=== PATIENT | male | born 1960 | race Caucasian/White ===

== ENCOUNTER 2017-03-26 11:50 | Inpatient (IN) | payer OTHER ==
--- NOTE | 2017-03-26 13:19 | PDOC ---
History of Present Illness - General Chief Complaint: Respiratory Stated Complaint: SOB (PCP SENT) Time Seen by Provider: 03/26/17 12:35 - History of Present Illness Initial Comments: 03/26/17 13:12 "56 year old male, with significant past medical history of CAD s/p coronary artery bypass grafting 06/23/07 and graft re-implantation 12/26/16, HTN, HLD, childhood lymphoma (s/p radiation and pectus excavatum deformity), AVR, CVA, carotid stenosis, who presents to the ER today complaining of 3 weeks of SOB on exertion. When the episodes occur, his chest feels tight, his hearing becomes muffled and he feels as though he is going to pass out. He denies any syncopal episodes. He states that the symptoms occur with minimal exertion, such as walking. These symptoms are alleviated after sitting down and catching his breath. At this moment, the patient is not experiencing any symptoms. The patient was sent into the ED today by Dr. Pleitez for labwork, imaging, and admission. Denies palpitations. Denies cough. Denies fever, chills, nausea, vomiting. Allergies: NKDA Ship Worker: Dr. Pleitez PMD: Dr. Gilbert " Past History - Past Medical History Allergies/Adverse Reactions: Allergies Allergy/AdvReac Type Severity Reaction Status Date / Time shrimp Allergy Verified 03/26/17 11:56 SHRIMPS Allergy Unknown Uncoded 03/26/17 11:56 Home Medications: Ambulatory Orders Aspirin [Aspirin EC] 81 mg PO DAILY 04/29/16 Nebivolol [Bystolic -] 5 mg PO DAILY 04/29/16 Pravastatin Sodium [Pravachol -] 40 mg PO HS 04/29/16 Ezetimibe 10 mg PO ONCE 03/26/17 Cardiac Disorders: Yes (CAD) COPD: No Hypercholesterolemia: Yes - Surgical History Cardiac Surgery: Yes (TRIPPLE VESSEL CABG, AORTIC VALVE REPLACEMENT) - Suicide/Smoking/Psychosocial Hx Smoking History: Never smoked Have you smoked in the past 12 months: No Hx Alcohol Use: No Drug/Substance Use Hx: No Substance Use Type: None Review of Systems - Review of Systems Comments:: 03/26/17 13:14 "GENERAL/CONSTITUTIONAL: No fever or chills. No weakness. HEAD, EYES, EARS, NOSE AND THROAT: No change in vision. No ear pain or discharge. No sore throat. CARDIOVASCULAR: +SOB on exertion. No chest pain. RESPIRATORY: No cough, wheezing, or hemoptysis. GASTROINTESTINAL: No nausea, vomiting, diarrhea or constipation. GENITOURINARY: No dysuria, frequency, or change in urination. MUSCULOSKELETAL: No joint or muscle swelling or pain. No neck or back pain. SKIN: No rash NEUROLOGIC: No headache, vertigo, loss of consciousness, or change in strength/ sensation. ENDOCRINE: No increased thirst. No abnormal weight change. HEMATOLOGIC/LYMPHATIC: No anemia, easy bleeding, or history of blood clots. ALLERGIC/IMMUNOLOGIC: No hives or skin allergy. " *Physical Exam - Vital Signs Last Vital Signs Temp Pulse Resp BP Pulse Ox 97.9 F 73 20 124/70 100 03/26/17 11:53 03/26/17 12:39 03/26/17 11:53 03/26/17 11:53 03/26/17 12:39 - Physical Exam Comments: 03/26/17 13:15 "GENERAL: Awake, alert, and fully oriented, in no acute distress HEAD: No signs of trauma EYES: PERRLA, EOMI, sclera anicteric, conjunctiva clear ENT: Auricles normal inspection, hearing grossly normal, nares patent, oropharynx clear without exudates. Moist mucosa NECK: Nontender, no stepoffs, Normal ROM, supple, no lymphadenopathy, JVD, or masses LUNGS: Breath sounds equal, clear to auscultation bilaterally. No wheezes, and no crackles HEART: Regular rate and rhythm, normal S1 and S2, systolic ejection murmur ABDOMEN: Soft, nontender, normoactive bowel sounds. No guarding, no rebound. No masses EXTREMITIES: Normal range of motion, no edema. No clubbing or cyanosis. No cords , erythema, or tenderness NEUROLOGICAL: Cranial nerves II through XII intact. 5/5 strength and sensation in all extremities, Normal speech, normal gait SKIN: Warm, Dry, normal turgor, no rashes or lesions noted. " Heart Score/ECG Review - ECG Impressions Comment:: 03/26/17 13:15 NSR, no BARRIE/STDs, LBBB, inferior TWIs, axis wnl ED Treatment Course - LABORATORY CBC & Chemistry Diagram: 03/26/17 12:45 03/26/17 12:45 - RADIOLOGY Radiology Studies Ordered: Category Date Time Status CHEST CTA [CT] Stat CT Scan 03/26/17 12:53 Ordered CHEST X-RAY PORTABLE* [RAD] Stat Radiology 03/26/17 12:54 Ordered Medical Decision Making - Medical Decision Making 03/26/17 13:16 56 M with worsening BILL. Will evaluate for ACS and CHF, though pt clinically with no signs of either. Will obtain CTA of chest to evaluate vessels given recent valve replacement (december 26, 2016), consider echo to r/o paravalvular leak. - Labs - CXR - CTA chest - Admit tele 03/26/17 22:43 CT negative for PE. Will admit for further work up, including echo to eval aortic valve. Case discussed in detail with admitting physician including history, physical exam and ancillary studies. Admitting physician has assumed care for the patient and will follow all pending diagnostics and complete the evaluation and treatment. *DC/Admit/Observation/Transfer Diagnosis at time of Disposition: SOB (shortness of breath) - Discharge Dispostion Admit: Yes - Attestations Physician Attestion: 03/26/17 14:30 I, Dr. Abel Hart MD, attest that this document has been prepared under my direction and personally reviewed by me in its entirety. I further attest, that it accurately reflects all work, treatment, procedures and medical decision -making performed by me.
--- NOTE | 2017-03-26 13:25 | HP ---
Admitting History and Physical - Primary Care Physician PCP: Braden Nascimento - Admission Chief Complaint: sob on exertion History of Present Illness: 56 year old male, with significant past medical history of CAD s/p coronary artery bypass grafting 06/23/07 and graft re-implantation 12/26/16, HTN, HLD, childhood lymphoma (s/p radiation and pectus excavatum deformity), mechanical AVR at [place] on December 26 2016, CVA post-op, carotid stenosis, who presents to the ER today complaining of 3 weeks of SOB on exertion. When the episodes occur, his chest feels tight, his hearing becomes muffled and he feels as though he is going to pass out. He denies any syncopal episodes. He states that the symptoms occur with minimal exertion, such as walking. These symptoms are alleviated after sitting down and catching his breath. At this moment, the patient is not experiencing any symptoms. The patient was sent into the ED today by Dr. Pleitez and Dr. Nascimento for labwork, imaging, and admission. - Smoking History Smoking history: Never smoked Have you smoked in the past 12 months: No - Alcohol/Substance Use Hx Alcohol Use: No Home Medications - Allergies Allergies/Adverse Reactions: Allergies Allergy/AdvReac Type Severity Reaction Status Date / Time shrimp Allergy Verified 03/26/17 11:56 SHRIMPS Allergy Unknown Uncoded 03/26/17 11:56 - Home Medications Home Medications: Ambulatory Orders Aspirin [Aspirin EC] 81 mg PO DAILY 04/29/16 Nebivolol [Bystolic -] 5 mg PO DAILY 04/29/16 Pravastatin Sodium [Pravachol -] 40 mg PO HS 04/29/16 Ezetimibe 10 mg PO ONCE 03/26/17 Family Disease History - Family Disease History Family History: Unremarkable Review of Systems - Review of Systems Constitutional: denies: Chills, Fever Eyes: denies: Blind Spots HENT: denies: Difficult Swallowing Neck: reports: Decreased ROM Cardiovascular: reports: Shortness of Breath. denies: Chest Pain, Palpitations Respiratory: reports: Exercise Intolerance, SOB on Exertion. denies: Hemoptysis , Orthopnea Gastrointestinal: denies: Abdominal Pain Genitourinary: denies: Burning Breasts: reports: No Symptoms Reported Musculoskeletal: reports: No Symptoms Integumentary: reports: No Symptoms Neurological: reports: No Symptoms Physical Examination Vital Signs: Vital Signs Temperature 97.9 F 03/26/17 11:53 Pulse Rate 73 03/26/17 12:39 Respiratory Rate 20 03/26/17 11:53 Blood Pressure 124/70 03/26/17 11:53 O2 Sat by Pulse Oximetry (%) 100 03/26/17 12:39 Constitutional: Yes: Calm Eyes: Yes: EOM Intact HENT: Yes: Normocephalic Neck: Yes: Trachea Midline Cardiovascular: Yes: Regular Rate and Rhythm, S1, S2 Respiratory: Yes: Diminished (bibasilar right greater than left) Gastrointestinal: Yes: Normal Bowel Sounds ...Rectal Exam: Yes: Deferred Edema: No Peripheral Pulses WNL: Yes Labs: All labs pending Imaging - Results Chest X-ray: Pending Cat Scan: Pending Problem List - Problems (1) CAD (coronary artery disease) of artery bypass graft Code(s): I25.810 - ATHEROSCLEROSIS OF CABG W/O ANGINA PECTORIS (2) H/O aortic valve replacement Code(s): Z95.2 - PRESENCE OF PROSTHETIC HEART VALVE (3) CVA (cerebral vascular accident) Code(s): I63.9 - CEREBRAL INFARCTION, UNSPECIFIED (4) Dyspnea due to congestive heart failure Code(s): I50.9 - HEART FAILURE, UNSPECIFIED (5) Diastolic CHF Code(s): I50.30 - UNSPECIFIED DIASTOLIC (CONGESTIVE) HEART FAILURE (6) Lymphoma Code(s): C85.90 - NON-HODGKIN LYMPHOMA, UNSPECIFIED, UNSPECIFIED SITE Assessment/Plan BILL WITH DESATURATION SPO2 DENIES ORTHOPNEA PLEURAL EFFUSION LVDD EXTENSIVE CARDIAC HX LISTED CABG/AVR METTALIC NOTED MARIA ISABEL 1 WHEN PERFORMING CARDIO REHAB CHRONIC ANTICOAGULATION CTA R/O ILD/PE/CHF CARDIO EVAL REPEAT ECHO CHECK LABS/CXR/EKG PENDING ADMIT TO TELEMETRY Charmaine NASCIMENTO MD
[2017-03-26 13:55] LABS: MCH 21.4 pg (25.7-33.7); MCHC 31.1 g/dl (32.0-35.9); MEAN CELL VOLUME 68.8 fl (80-96); MEAN PLT VOLUME 9.4 fl (7.5-11.1); PLATELET COUNT 403 K/MM3 (134-434); WHITE BLOOD COUNT 8.6 K/mm3 (4.0-10.0)
[2017-03-26 14:04] LABS: INR 2.91 (0.82-1.09); PROTHROMBIN TIME (PATIENT) 32.9 SEC (9.98-11.88)
[2017-03-26 14:24] LABS: ALBUMIN 3.8 g/dl (3.4-5.0); ANION GAP 7 (8-16); BILIRUBIN,TOTAL 1.1 mg/dL (0.2-1.0); CALCIUM 9.8 mg/dL (8.5-10.1); CO2 30 mmol/L (21-32); GLUCOSE,RANDOM 95 mg/dL (74-106); SGOT/AST 29 U/L (15-37); SGPT/ALT 23 U/L (12-78); TOT PROT 7.4 g/dl (6.4-8.2)
[2017-03-26 14:25] LABS: ALK PHOS 139 U/L (45-117)
[2017-03-26 14:45] LABS: CPK 47 IU/L (39-308); TROPONIN I < 0.02 ng/ml (0.00-0.05)
[2017-03-26] MEDS ORDERED: NEBIVOLOL 5 MG TABLET (FP) PO ONE (14:45)
[2017-03-26 15:07] LABS: PLATELET ESTIMATE ADEQUATE (NORMAL); TOTAL CELLS COUNTED 100
[2017-03-26 15:08] LABS: BASOPHIL (MANUAL) 3 % (0-2.0); NUCLEATED RED BLOOD CELL 1 % (0-0)
[2017-03-26] MEDS ORDERED: ASPIRIN COATED 81 MG TABLET.EC ONE (15:32)
[2017-03-26 15:37] LABS: ACANTHOCYTES 3+; ANISOCYTOSIS 2+; MACROCYTOSIS FEW; MICROCYTOSIS 3+; SPHEROCYTE 2+; TARGET CELLS 4+; TEAR DROP CELLS 1+
[2017-03-26] MEDS: ASPIRIN COATED 81 MG TABLET.EC PO SCH (15:48)
[2017-03-26 16:46] LABS: URINE APPEARANCE CLEAR; URINE BILIRUBIN NEGATIVE (NEGATIVE); URINE BLOOD NEGATIVE (NEGATIVE); URINE COLOR LTYELLOW; URINE GLUCOSE (UA) NEGATIVE (NEGATIVE); URINE KETONE NEGATIVE (NEGATIVE); URINE NITRITE NEGATIVE (NEGATIVE); URINE PROTEIN NEGATIVE (NEGATIVE); URINE UROBILINOGEN NEGATIVE mg/dL (0.2-1.0)
[2017-03-26 18:49] VITALS: BMI 22.6
[2017-03-26 20:53] LABS: URINE LEUK ESTERASE Negative (NEGATIVE)
[2017-03-26] MEDS ORDERED: FUROSEMIDE 40 MG/4 ML INJECTABLE VIAL IVPUSH ONE (21:15)
[2017-03-26] MEDS ORDERED: WARFARIN NA 2 MG TABLET (UD) PO ONE (21:15)
[2017-03-26] MEDS ORDERED: MELATONIN 5 MG TABLETS PO SCH (22:00)
[2017-03-26] MEDS ORDERED: PRAVASTATIN NA 40 MG TABLET PO SCH (22:00)
[2017-03-26] MEDS ORDERED: ATORVASTATIN CA 10 MG TABLET (FP) PO SCH (22:00)
[2017-03-27] MEDS ORDERED: ACETAMINOPHEN 325 MG TABLET (FP) PO PRN (05:19)
[2017-03-27] MEDS ORDERED: ACETAMINOPHEN 325 MG TABLET (FP) ONE (05:20)
[2017-03-27 07:44] LABS: MCH 21.5 pg (25.7-33.7); MCHC 31.6 g/dl (32.0-35.9); MEAN CELL VOLUME 68.2 fl (80-96); MEAN PLT VOLUME 9.7 fl (7.5-11.1); PLATELET COUNT 405 K/MM3 (134-434); RDW 16.5 % (11.9-15.9); WHITE BLOOD COUNT 8.3 K/mm3 (4.0-10.0)
[2017-03-27 07:53] LABS: INR 3.2 (0.82-1.09); PROTHROMBIN TIME (PATIENT) 36.2 SEC (9.98-11.88)
[2017-03-27 08:38] LABS: ALBUMIN 3.4 g/dl (3.4-5.0); ANION GAP 9 (8-16); BILIRUBIN,TOTAL 1.3 mg/dL (0.2-1.0); CALCIUM 9.8 mg/dL (8.5-10.1); CO2 27 mmol/L (21-32); CREATININE 0.9 mg/dL (0.7-1.3); GLUCOSE,RANDOM 81 mg/dL (74-106); SGOT/AST 22 U/L (15-37); SGPT/ALT 21 U/L (12-78); TOT PROT 6.9 g/dl (6.4-8.2)
[2017-03-27 08:39] LABS: ALK PHOS 126 U/L (45-117)
[2017-03-27] MEDS: ASPIRIN COATED 81 MG TABLET.EC PO SCH (09:23)
[2017-03-27] MEDS ORDERED: NEBIVOLOL 5 MG TABLET (FP) PO SCH (10:00)
--- NOTE | 2017-03-27 13:03 | CON.CARD ---
Consult Consult Specialty:: Cardiology Referred by:: Dr. Fierro Reason for Consultation:: Cardiac evaluation - History of Present Illness Chief Complaint: SOB and oxygen desaturation with ambulation History of Present Illness: Patient is a 56 year old gentleman who follows with Dr. 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 He also has history of hypertension, hypercholesterolemia, cerebrovascular disease with residual deficit, left bundle branch block, carotid artery disease and childhood lymphoma post radiation therapy. His surgery was done at [facility] with Dr. Magnus Mays. Patient also had extraction of retained pacer wire at [place] following above evaluation. He was at [facility] where on the bicycle exercise, he developed episodes of what appears to be advanced AV block. Patient also thought to be hypoxic which my have precipitated the heart block. He was admitted for further evaluation. He denies chest pain, SOB or palpitations. He denies paroxysmal nocturnal dyspnea or orthopnea. He denies fever or chills. He denies nausea, vomiting, diarrhea or abdominal pain. - History Source History Provided By: Patient, Medical Record Limitations to Obtaining History: No Limitations - Past Medical History Cardio/Vascular: Yes: Aortic Stenosis, CAD, HTN, Hyperlipdemia, Mitral Insufficiency, Other (Diastolic dysfunction) - Past Surgical History Past Surgical History: Yes: CABG, Valve Replacement Additional Surgical History: Bentall procedure - Alcohol/Substance Use Hx Alcohol Use: No - Smoking History Smoking history: Never smoked Have you smoked in the past 12 months: No Home Medications - Allergies Allergies/Adverse Reactions: Allergies Allergy/AdvReac Type Severity Reaction Status Date / Time shrimp Allergy Verified 03/26/17 11:56 SHRIMPS Allergy Unknown Uncoded 03/26/17 11:56 - Home Medications Home Medications: Ambulatory Orders Aspirin [Aspirin EC] 81 mg PO DAILY 04/29/16 Nebivolol [Bystolic -] 5 mg PO DAILY 04/29/16 Pravastatin Sodium [Pravachol -] 40 mg PO HS 04/29/16 Ezetimibe 10 mg PO ONCE 03/26/17 Review of Systems - Review of Systems Constitutional: denies: Chills, Fever Cardiovascular: reports: Shortness of Breath. denies: Chest Pain, Palpitations Respiratory: reports: SOB, SOB on Exertion. denies: Cough, Hemoptysis, Orthopnea, PND Gastrointestinal: denies: Abdominal Pain, Constipation, Diarrhea, Melena, Nausea , Rectal Bleeding, Vomiting Musculoskeletal: denies: Joint Pain Neurological: denies: Dizziness, Headache, Seizure, Syncope Vital Signs: Vital Signs Temperature 98 F 03/27/17 10:00 Pulse Rate 90 03/27/17 10:00 Respiratory Rate 18 03/27/17 10:00 Blood Pressure 107/64 03/27/17 10:00 O2 Sat by Pulse Oximetry (%) 98 03/27/17 09:00 Neck: Yes: Supple Respiratory: Yes: Diminished Gastrointestinal: Yes: Normal Bowel Sounds, Soft. No: Tenderness Cardiovascular: Yes: Regular Rate and Rhythm JVD: No Carotid Bruit: No PMI: Non-Displaced Heart Sounds: Yes: S1, S2 Murmur: Yes: Systolic Murmur, Grade 1 Edema: No - Other Data Labs, Other Data: CBC, BMP 03/27/17 05:35 03/27/17 05:35 INR, PTT INR 3.20 (0.82-1.09) H 03/27/17 05:35 Laboratory Results - last 24 hr 03/26/17 03/27/17 03/27/17 16:35 05:35 05:35 WBC 8.3 RBC 5.60 Hgb 12.0 Hct 38.2 MCV 68.2 L MCH 21.5 L MCHC 31.6 L RDW 16.5 H Plt Count 405 MPV 9.7 PT with INR 36.20 H INR 3.20 H Sodium Potassium Chloride Carbon Dioxide Anion Gap BUN Creatinine Creat Clearance w eGFR Random Glucose Calcium Total Bilirubin AST ALT Alkaline Phosphatase Total Protein Albumin Urine Color Ltyellow Urine Appearance Clear Urine pH 6.0 Ur Specific [place] > 1.060 H Urine Protein Negative Urine Glucose (UA) Negative Urine Ketones Negative Urine Blood Negative Urine Nitrite Negative Urine Bilirubin Negative Urine Urobilinogen Negative Ur Leukocyte Esterase Negative 03/27/17 05:35 WBC RBC Hgb Hct MCV MCH MCHC RDW Plt Count MPV PT with INR INR Sodium 138 Potassium 4.8 Chloride 102 Carbon Dioxide 27 Anion Gap 9 BUN 21 H D Creatinine 0.9 Creat Clearance w eGFR > 60 Random Glucose 81 Calcium 9.8 Total Bilirubin 1.3 H AST 22 D ALT 21 Alkaline Phosphatase 126 H Total Protein 6.9 Albumin 3.4 Urine Color Urine Appearance Urine pH Ur Specific [place] Urine Protein Urine Glucose (UA) Urine Ketones Urine Blood Urine Nitrite Urine Bilirubin Urine Urobilinogen Ur Leukocyte Esterase Sinus rhythm with LBBB Imaging - Results Chest X-ray: Report Reviewed Cat Scan: Report Reviewed (CTA of chest shows bilateral pleural effusion) EKG: Report Reviewed Problem List - Problems (1) CAD (coronary artery disease) of artery bypass graft Code(s): I25.810 - ATHEROSCLEROSIS OF CABG W/O ANGINA PECTORIS Qualifiers: [place] vs. transplanted heart: [place] heart Associated angina: without angina Qualified Code(s): I25.810 - Atherosclerosis of coronary artery bypass graft(s) without angina pectoris; I25.810 - Atherosclerosis of coronary artery bypass graft(s) without angina pectoris; I25.810 - Atherosclerosis of coronary artery bypass graft(s) without angina pectoris (2) CVA (cerebral vascular accident) Code(s): I63.9 - CEREBRAL INFARCTION, UNSPECIFIED Qualifiers: CVA mechanism: unspecified Qualified Code(s): I63.9 - Cerebral infarction, unspecified; I63.9 - Cerebral infarction, unspecified; I63.9 - Cerebral infarction, unspecified; I63.9 - Cerebral infarction, unspecified (3) Diastolic CHF Code(s): I50.30 - UNSPECIFIED DIASTOLIC (CONGESTIVE) HEART FAILURE Qualifiers : Congestive heart failure chronicity: acute on chronic Qualified Code (s): I50.33 - Acute on chronic diastolic (congestive) heart failure; I50.33 - Acute on chronic diastolic (congestive) heart failure; I50.33 - Acute on chronic diastolic (congestive) heart failure; I50.33 - Acute on chronic diastolic (congestive) heart failure (4) H/O aortic valve replacement Code(s): Z95.2 - PRESENCE OF PROSTHETIC HEART VALVE (5) SOB (shortness of breath) Code(s): R06.02 - SHORTNESS OF BREATH (6) Status post ascending aortic aneurysm repair Code(s): Z98.890 - OTHER SPECIFIED POSTPROCEDURAL STATES Z86.79 - PERSONAL HISTORY OF OTHER DISEASES OF THE CIRCULATORY SYSTEM (7) Hypoxia Code(s): R09.02 - HYPOXEMIA (8) HTN (hypertension) Code(s): I10 - ESSENTIAL (PRIMARY) HYPERTENSION Qualifiers: Hypertension type: essential hypertension Qualified Code(s): I10 - Essential (primary) hypertension; I10 - Essential (primary) hypertension; I10 - Essential (primary) hypertension (9) Hypercholesterolemia Code(s): E78.00 - PURE HYPERCHOLESTEROLEMIA, UNSPECIFIED Assessment/Plan 1. Hypoxia with exercise, etiology to be determined rule out pulmonary process 2. Episode of AV block possibly Mobitz 1 [place] with exercise (during rehab) 3. CAD s/p CABG, reimplantation of graft after Bentall procedure 4. AVR with mechanical prosthesis 5. Pleural effusion with 0-1 NYHA classification LV failure 6. HTN/HCVD 7. Hypercholesterolemia 8. Cerebrovascular disease 9. Complete LBBB PLAN: 1. Exercise treadmill stress test and monitor O2 saturation - After 7 minutes of exercise, O2 saturation decreased to 78%, patient complained of chest tightness, but no evidence of AV block or pause 2. Consider diuretics (previously was on Lasix 40 mg once a day as outpatient) 3. Continue Bystolic 4. Continue statin and Zetia 5. Warfarin and monitor INR. Patient may need further catheter intervention including right heart cath in which case Warfarin may need to be held for a day or two. 6. Pleural effusion may need to be addressed as well and perhaps thoracentesis may help with the diagnosis Spoke with Dr. Fierro, Dr. Hurley and Dr. Mays at [facility] for transfer to [facility]. Discussed with patient in great detail Gianni Hudson MD
[2017-03-27 15:01] VITALS: BP 114/70; PULSE 94; TEMP 98.2
--- NOTE | 2017-03-27 15:22 | TRE ---
Protocol Name : SERA Max Work Load (METS*10) : 95 Time In Exercise Phase : 00:07:38 Max. Systolic BP : 144 mmHg Max Diastolic BP : 80 mmHg Max Heart Rate : 121 BPM Max Predicted Heart Rate : 166 BPM Attending Physician : Reason For Termination : Dyspnea Reason for Test : SOB Stress Protocol : SERA Rest HR : 89 BPM PeakEx METs : 9.5 METS Recovery ECG Response (OLD) : Diagnosis : Patient exercised for 7:38 minutes, reaching 72% mphr, 9.5 mets. Exercise stopped due to fatigue. Patient had chest tightness with exercise, resolved with rest. Normal BP and HR response to exercise. O2 sat remained 98-100% during exercise until approx 7 minutes into sera protocol when it dropped to 78%. After exercise O2 sat quickly niru back to 100%. No arrhythmias with exercise. Baseline ecg shows sr with inf st depressions. During exercise baseline inferior st depressions worsened and there were lateral st depressions as well. Nondiagnostic exercise stress test by ecg due to baseline ecg abnormalities. Patient experienced exertional chest pain with exercise and drop in 02 sat as above. Confirmed by GERALD LOPEZ MD ([id number]) on 03/27/2017 3:22:18 PM
--- NOTE | 2017-03-27 16:14 | PN ---
Progress Note (short form) - Note Progress Note: Feels a little better today. Slightly less BILL, but present. Had BILL but no CP during cardiac stress test. Official report of stress not yet available. Intake & Output 03/24/17 03/25/17 03/26/17 03/27/17 23:59 23:59 23:59 23:59 Intake Total 10 250 Balance 10 250 Weight 140 lb Last Vital Signs Temp Pulse Resp BP Pulse Ox 98.2 F 94 H 18 114/70 98 03/27/17 15:01 03/27/17 15:01 03/27/17 15:01 03/27/17 15:01 03/27/17 09:00 Active Medications Acetaminophen (Tylenol -) 650 mg PO Q6H PRN PRN Reason: FEVER OR PAIN Last Admin: 03/27/17 05:22 Dose: 650 mg Aspirin (Ecotrin -) 81 mg PO DAILY [facility] Last Admin: 03/27/17 09:23 Dose: 81 mg Atorvastatin Calcium (Lipitor -) 10 mg PO HS [facility] Last Admin: 03/26/17 22:10 Dose: Not Given Melatonin (Melatonin) 10 mg PO [facility] Last Admin: 03/26/17 22:10 Dose: 10 mg Nebivolol (Bystolic -) 5 mg PO DAILY [facility] Last Admin: 03/27/17 09:23 Dose: 5 mg Constitutional: Yes: NAD on RA Eyes: Yes: EOM Intact HENT: Yes: Normocephalic Neck: Yes: Trachea Midline Cardiovascular: Yes: Regular Rate and Rhythm, S1, S2 Respiratory: Yes: Diminished at the bases Gastrointestinal: Yes: Normal Bowel Sounds ...Rectal Exam: Yes: Deferred Edema: No Peripheral Pulses WNL: Yes Labs: Laboratory Results - last 24 hr 03/26/17 03/27/17 03/27/17 16:35 05:35 05:35 WBC 8.3 RBC 5.60 Hgb 12.0 Hct 38.2 MCV 68.2 L MCH 21.5 L MCHC 31.6 L RDW 16.5 H Plt Count 405 MPV 9.7 PT with INR 36.20 H INR 3.20 H Sodium Potassium Chloride Carbon Dioxide Anion Gap BUN Creatinine Creat Clearance w eGFR Random Glucose Calcium Total Bilirubin AST ALT Alkaline Phosphatase Total Protein Albumin Urine Color Ltyellow Urine Appearance Clear Urine pH 6.0 Ur Specific [place] > 1.060 H Urine Protein Negative Urine Glucose (UA) Negative Urine Ketones Negative Urine Blood Negative Urine Nitrite Negative Urine Bilirubin Negative Urine Urobilinogen Negative Ur Leukocyte Esterase Negative 03/27/17 05:35 WBC RBC Hgb Hct MCV MCH MCHC RDW Plt Count MPV PT with INR INR Sodium 138 Potassium 4.8 Chloride 102 Carbon Dioxide 27 Anion Gap 9 BUN 21 H D Creatinine 0.9 Creat Clearance w eGFR > 60 Random Glucose 81 Calcium 9.8 Total Bilirubin 1.3 H AST 22 D ALT 21 Alkaline Phosphatase 126 H Total Protein 6.9 Albumin 3.4 Urine Color Urine Appearance Urine pH Ur Specific [place] Urine Protein Urine Glucose (UA) Urine Ketones Urine Blood Urine Nitrite Urine Bilirubin Urine Urobilinogen Ur Leukocyte Esterase Problem List - Problems (1) CAD (coronary artery disease) of artery bypass graft Code(s): I25.810 - ATHEROSCLEROSIS OF CABG W/O ANGINA PECTORIS (2) H/O aortic valve replacement Code(s): Z95.2 - PRESENCE OF PROSTHETIC HEART VALVE (3) CVA (cerebral vascular accident) Code(s): I63.9 - CEREBRAL INFARCTION, UNSPECIFIED (4) Dyspnea due to congestive heart failure Code(s): I50.9 - HEART FAILURE, UNSPECIFIED (5) Diastolic CHF Code(s): I50.30 - UNSPECIFIED DIASTOLIC (CONGESTIVE) HEART FAILURE (6) Lymphoma Code(s): C85.90 - NON-HODGKIN LYMPHOMA, UNSPECIFIED, UNSPECIFIED SITE Assessment/Plan BILL WITH DESATURATION SPO2 BILATERAL PLEURAL EFFUSION RIGHT > LEFT LVDD EXTENSIVE CARDIAC HX LISTED CABG/AVR METTALIC NOTED MOBITZ 1 WHEN PERFORMING CARDIO REHAB CHRONIC ANTICOAGULATION WILL CHECK OFFICIAL STRESS TEST REPORT CURRENT MEDICATIONS ANTICIPATE TRANSFER TO TERTIARY CARE FOR ADVANCED CARDIAC WORKUP MAY BENEFIT FROM PLEURAL FLUID DRAINAGE ON THE RIGHT TELEMETRY MONITORING DR TODD NASCIMENTO MD
--- NOTE | 2017-03-27 17:06 | EKG ---
Test Reason : Blood Pressure : / mmHG Vent. Rate : 077 BPM Atrial Rate : 077 BPM P-R Int : 220 ms QRS Dur : 134 ms QT Int : 430 ms P-R-T Axes : 076 118 -20 degrees QTc Int : 486 ms SINUS RHYTHM WITH 1ST DEGREE A-V BLOCK LEFT ATRIAL ENLARGEMENT NON-SPECIFIC INTRA-VENTRICULAR CONDUCTION BLOCK CANNOT RULE OUT ANTERIOR INFARCT (CITED ON OR BEFORE 26-MAR-2017) T WAVE ABNORMALITY, CONSIDER INFERIOR ISCHEMIA ABNORMAL ECG WHEN COMPARED WITH ECG OF 02-NOV-2007 10:57, NC INTERVAL HAS INCREASED NON-SPECIFIC INTRA-VENTRICULAR CONDUCTION BLOCK HAS REPLACED INCOMPLETE RIGHT BUNDLE BRANCH BLOCK QUESTIONABLE CHANGE IN INITIAL FORCES OF ANTERIOR LEADS Confirmed by GERALD LOPEZ MD ([id number]) on 03/27/2017 5:06:07 PM Referred By: Confirmed By:GERALD LOPEZ MD
== END 2017-03-27 18:34 | disposition short-term general hospital (02) | DRG 309 ==
LOC: JER 11:50 → JERBED 14:30 → J4W 18:26
PROVIDERS: ADMIT Specialist; ATTEND Specialist
DX: I44.1 Atrioventricular block, second degree (principal); I50.32 Chronic diastolic (congestive) heart failure; I11.0 Hypertensive heart disease with heart failure; I25.10 Atherosclerotic heart disease of native coronary artery without angina pectoris; Z95.1 Presence of aortocoronary bypass graft; Z95.4 Presence of other heart-valve replacement; Z79.01 Long term (current) use of anticoagulants; Z85.72 Personal history of non-Hodgkin lymphomas; I69.398 Other sequelae of cerebral infarction; R09.02 Hypoxemia; I44.7 Left bundle-branch block, unspecified
CPT/HCPCS: 36415; 71010-TC; 71275-TC; 80053; 81003; 82550; 83605; 83880; 84484; 85025; 85027; 85610; 85730; 86850; 86870; 86900; 86901; 86902; 93005; 93010; 93017; 93018; 99285-25

== ENCOUNTER 2018-04-21 09:46 | Day surgery (SDC) | payer OTHER ==
[2018-04-21 08:39] VITALS: BMI 25.2
[2018-04-21 11:54] VITALS: TEMP 97.7
[2018-04-21 13:54] VITALS: BP 123/69; PULSE 76
== END 2018-04-21 13:54 | disposition home or self-care (01) ==
LOC: JASU-ENDO 09:46
PROVIDERS: ATTEND Internal Medicine Gastroenterology
PROC: 0DJD8ZZ Inspection of Lower Intestinal Tract, Via Natural or Artificial Opening Endoscopic (ICD-10-PCS; principal; 2018-04-21 11:00)
DX: Z12.11 Encounter for screening for malignant neoplasm of colon (principal); Z80.0 Family history of malignant neoplasm of digestive organs; K64.8 Other hemorrhoids

== ENCOUNTER 2019-12-14 07:41 | Day surgery (SDC) | payer OTHER ==
[2019-12-08 15:28] VITALS: BMI 22.7
[2019-12-14 09:25] VITALS: TEMP 97.8
[2019-12-14 09:50] VITALS: BP 141/77; PULSE 84
== END 2019-12-14 10:20 | disposition home or self-care (01) ==
LOC: JASU-ENDO 07:41
PROVIDERS: ATTEND Internal Medicine Gastroenterology
PROC: 0DJD8ZZ Inspection of Lower Intestinal Tract, Via Natural or Artificial Opening Endoscopic (ICD-10-PCS; 2019-12-14)
PROC: 0DJ08ZZ Inspection of Upper Intestinal Tract, Via Natural or Artificial Opening Endoscopic (ICD-10-PCS; principal; 2019-12-14 09:00)
DX: D64.9 Anemia, unspecified (principal)

== ENCOUNTER 2021-07-19 04:48 | Day surgery (SDC) | payer OTHER ==
[2021-07-17 14:52] VITALS: BMI 22.7
[2021-07-19 12:59] VITALS: TEMP 97.7
[2021-07-19 13:42] VITALS: BP 120/60; PULSE 94
== END 2021-07-19 14:08 | disposition home or self-care (01) ==
LOC: JASU-ENDO 04:48
PROVIDERS: ATTEND Internal Medicine Gastroenterology
PROC: 0DJ08ZZ Inspection of Upper Intestinal Tract, Via Natural or Artificial Opening Endoscopic (ICD-10-PCS; principal; 2021-07-19 11:30)
DX: D50.9 Iron deficiency anemia, unspecified (principal)